=== PATIENT | male | born 2000 | race Caucasian/White ===

== ENCOUNTER 2019-09-08 21:58 | Inpatient (IN) | payer BC ==
[~2019-09-08] VITALS: Ht 180.3 cm; Wt 95.0 kg
[2019-09-08] MEDS ORDERED: normal saline 1000ML IV soln IVB ONE (22:15)
[2019-09-08] MEDS ORDERED: famotidine/PF 10 mg/ml inj IV ONE (22:15)
[2019-09-08] MEDS ORDERED: ondansetron/PF 4mg/2ml inj IV ONE (22:15)
[2019-09-08 22:19] LABS: BASOPHILS # (AUTO) 0.1 X10'3 (0-0.2); BASOPHILS % (AUTO) 0.3 % (0-1); EOSINOPHILS % (AUTO) 0.1 % (0-6); HEMATOCRIT 52.5 % (42.0-52.0); HEMOGLOBIN 17.9 g/dl (14.0-17.9); LYMPHOCYTES # (AUTO) 1.7 X10'3 (1.1-4.8); LYMPHOCYTES % (AUTO) 6.2 % (21-51); MEAN CORPUSCULAR HEMOGLOBIN 28.9 PG (27.0-31.0); MEAN CORPUSCULAR HGB CONC 34.1 g/dL (33.0-36.5); MEAN CORPUSCULAR VOLUME 84.7 FL (78-98); MEAN PLATELET VOLUME 8.3 FL (7.4-10.4); MONOCYTES # (AUTO) 2.3 X10'3 (0-0.9); MONOCYTES % (AUTO) 8.4 % (2-12); NEUTROPHILS # (AUTO) 23.5 X10'3 (1.8-7.7); PLATELET COUNT 392 X10'3 (140-440); RED BLOOD COUNT 6.19 X10'6 (4.70-6.10); RED CELL DISTRIBUTION WIDTH 13.2 % (11.5-14.5)
[2019-09-08 22:22] LABS: WHITE BLOOD COUNT 27.6 X10'3 (4.5-11.0)
--- NOTE | 2019-09-08 22:29 | NUR ---
Attempt to collect urine. Patient states he does not feel like he can void at this time. Will attempt to collect UA after NS bolus completes.
[2019-09-08] MEDS ORDERED: normal saline 1000ML IV soln IV ONE (22:30)
[2019-09-08] MEDS ORDERED: iohexol 300mg/ml 100ml inj. ONE (22:39)
[2019-09-08 22:45] LABS: ALANINE AMINOTRANSFERASE 56 U/L (12-78); ALBUMIN 4.8 G/DL (3.4-5.0); ALBUMIN/GLOBULIN RATIO 1.2 (1.1-1.5); ALKALINE PHOSPHATASE 123 IU/L (46-116); ANION GAP 19 (8-16); ASPARTATE AMINO TRANSFERASE 29 U/L (10-37); BILIRUBIN,TOTAL 0.7 MG/DL (0.1-1.0); BLOOD UREA NITROGEN 14 MG/DL (7-18); BUN/CREATININE RATIO 9.6 (5.4-32.0); CALCIUM 9.8 MG/DL (8.5-10.1); CHLORIDE 102 MMOL/L (99-107); CREATININE 1.46 MG/DL (0.60-1.10); GLUCOSE 165 MG/DL (70-104); LIPASE 170 U/L (73-393); SODIUM 138 MMOL/L (135-145); TOTAL PROTEIN 8.9 G/DL (6.4-8.2); eGFR 61 ML/MIN
[2019-09-08] MEDS ORDERED: potassium Cl 20 mEq SR tablet PO STA (22:55)
[2019-09-08] MEDS ORDERED: proCHLORperazine 10 MG/2 ml inj IV ONE (23:15)
[2019-09-08 23:17] LABS: TOTAL CELLS COUNTED 100
[2019-09-08 23:19] LABS: PLATELET ESTIMATE NORMAL
[2019-09-08] MEDS ORDERED: CefTRIAXone 2gm/D5W 50ml 50 ML IV ONE (23:50)
[2019-09-08 23:52] LABS: CLARITY,URINE SLIGHTLY CLOUDY (Clear); COLOR,URINE YELLOW (Yellow); GLUCOSE, URINE NEGATIVE (Neg); KETONES,URINE 15 mg/dl (Neg); LEUKOCYTE ESTERASE ,URINE NEGATIVE (Neg); NITRITES, URINE NEGATIVE (Neg); OCCULT BLOOD,URINE NEGATIVE (Neg); PROTEIN,URINE NEGATIVE (Neg); UROBILINOGEN,URINE 0.2 E.U/dL (0.2-1.0)
[2019-09-08 23:56] LABS: UA COLLECTION TYPE CLN CATCH MIDSTREAM
[2019-09-08 23:58] LABS: BACTERIA,URINE FEW /HPF (Neg); MUCUS STRANDS MODERATE /LPF (Neg); SQUAMOUS EPITHELIAL CELL,UR NONE SEEN /LPF (FEW); WBC,URINE 0-4 /HPF (0-4)
[2019-09-09 00:02] LABS: AMORPHOUS PHOSPHATES 1+; RBC,URINE NONE SEEN /HPF (0-2)
[2019-09-09 00:05] LABS: URINE AMPHETAMINE SCREEN NEGATIVE (Neg); URINE BARBITUATE SCREEN NEGATIVE (Neg); URINE BENZODIAZEPINES SCREEN NEGATIVE (Neg); URINE CANNABINOID SCREEN NEGATIVE (Neg); URINE COCAINE SCREEN NEGATIVE (Neg); URINE METHADONE SCREEN NEGATIVE (Neg); URINE OPIATE SCREEN NEGATIVE (Neg); URINE PHENCYCLIDINE SCREEN NEGATIVE (Neg)
[2019-09-09] MEDS ORDERED: piperacillin/tazo 3.375gm/50ml 50 ML IV ONE (00:05)
[2019-09-09] MEDS ORDERED: normal saline 1000ML IV soln IVB ONE (00:10)
[2019-09-09] MEDS ORDERED: NO HOME MEDS (00:10)
--- NOTE | 2019-09-09 00:28 | NUR ---
Patient is resting more comfortably. Patient and family updated on POC.
[2019-09-09] MEDS ORDERED: ondansetron/PF 4mg/2ml inj IV PRN (01:30)
[2019-09-09] MEDS ORDERED: morphine 2 MG/ML inj. syringe IV PRN ×2 (01:30)
[2019-09-09] MEDS ORDERED: potassium CL 10mEq/100ml bag 100 ML IV PRN ×2 (01:35→08:45)
[2019-09-09] MEDS: normal saline 1000ml 1,000 ML IV SCH ×3 (02:07→17:45)
[2019-09-09 02:50] VITALS: BP 140/83
[2019-09-09] MEDS ORDERED: proCHLORperazine 10 MG/2 ml inj IV PRN (03:35)
[2019-09-09 05:06] LABS: PARTIAL THROMBOPLASTIN TIME 25 SECONDS (22-32)
[2019-09-09] MEDS ORDERED: normal saline 1000ml 1,000 ML IV ONE (05:10)
[2019-09-09] MEDS: diatr meglu/diatrizoate 30ml oral sol.-(3 dose) bottle PO SCH ×3 (05:32→10:50)
--- NOTE | 2019-09-09 06:23 | NUR ---
Problems reprioritized. Patient report given, questions answered & plan of care reviewed with AVRIL Whyte. Addendum: 09/09/19 at 0624 by Mary Blair RN Amended: Links added.
[2019-09-09 07:20] VITALS: BP 121/59
[2019-09-09] MEDS ORDERED: piperacillin/tazo 3.375gm/50ml 50 ML IV SCH (08:00)
[2019-09-09] MEDS ORDERED: magnesium 4gm in 100ml NS 100 ML IV PRN (08:45)
[2019-09-09] MEDS ORDERED: potassium Cl 20 mEq SR tablet PO PRN ×2 (08:45)
[2019-09-09] MEDS ORDERED: magnesium Cl slow-release 64mg tablet PO PRN (08:45)
[2019-09-09] MEDS ORDERED: iohexol 300mg/ml 100ml inj. ONE (10:32)
[2019-09-09 11:28] VITALS: BP 130/79
--- NOTE | 2019-09-09 14:55 | NUR ---
Read CT IMPRESSION (1. Negative for acute or alarming CT abdomen or pelvis findings. 2. Normal-appearing appendix..) over the phone with Dr. Herring, he stated that he does not need to be consulted. Notified hospitalist.
[2019-09-09] MEDS: levoFLOXACIN-Levaquin 750MG/D5 150 ML IV SCH (15:48)
[2019-09-09 17:37] LABS: C DIFF ANTIGEN NEGATIVE (NEGATIVE); C DIFF SPECIMEN=DIARRHEA? ACCEPTABLE; C DIFFICILE TOXINS A&B NEGATIVE (Neg)
[2019-09-09] MEDS: metroNIDAZOLE-Flagyl 500mg/NS 100 ML IV SCH ×2 (17:42→23:50)
[2019-09-09 18:00] VITALS: BP 128/88
--- NOTE | 2019-09-09 18:20 | NUR ---
Problems reprioritized. Patient report given, questions answered & plan of care reviewed with AVRIL CANALES.
[2019-09-09] MEDS ORDERED: ketorolac trometh. 30mg/ml inj. IV ONE (19:10)
[2019-09-09] MEDS: lactobacillus rhamnosus 10,000 MMU CELLS/CAPSULE PO SCH (19:24)
[2019-09-10] VITALS: BP 115/67
--- NOTE | 2019-09-10 04:32 | NUR ---
Patient in room [facility]. I have received report from AVRIL Whyte and had the opportunity to ask questions and assume patient care. Addendum: 09/10/19 at 0432 by Mary Blair RN Amended: Links added.
[2019-09-10] MEDS: normal saline 1000ml 1,000 ML IV SCH (04:41)
[2019-09-10 04:59] LABS: BASOPHILS % (AUTO) 0.2 % (0-1); EOSINOPHILS # (AUTO) 0.1 X10'3 (0-0.9); EOSINOPHILS % (AUTO) 1.3 % (0-6); HEMATOCRIT 40.6 % (42.0-52.0); HEMOGLOBIN 13.7 g/dl (14.0-17.9); LYMPHOCYTES # (AUTO) 1.6 X10'3 (1.1-4.8); MEAN CORPUSCULAR HEMOGLOBIN 28.9 PG (27.0-31.0); MEAN CORPUSCULAR HGB CONC 33.7 g/dL (33.0-36.5); MEAN CORPUSCULAR VOLUME 85.7 FL (78-98); MEAN PLATELET VOLUME 8.1 FL (7.4-10.4); MONOCYTES % (AUTO) 15.6 % (2-12); NEUTROPHILS # (AUTO) 3.6 X10'3 (1.8-7.7); NEUTROPHILS % (AUTO) 56.9 % (42-75); PLATELET COUNT 200 X10'3 (140-440); RED BLOOD COUNT 4.75 X10'6 (4.70-6.10); WHITE BLOOD COUNT 6.3 X10'3 (4.5-11.0)
[2019-09-10 05:27] LABS: ALANINE AMINOTRANSFERASE 34 U/L (12-78); ALBUMIN 2.9 G/DL (3.4-5.0); ALKALINE PHOSPHATASE 74 IU/L (46-116); ANION GAP 7 (8-16); ASPARTATE AMINO TRANSFERASE 19 U/L (10-37); BILIRUBIN,TOTAL 0.4 MG/DL (0.1-1.0); BLOOD UREA NITROGEN 6 MG/DL (7-18); BUN/CREATININE RATIO 6.1 (5.4-32.0); CALCIUM 7.6 MG/DL (8.5-10.1); CHLORIDE 110 MMOL/L (99-107); CREATININE 0.99 MG/DL (0.60-1.10); GLUCOSE 97 MG/DL (70-104); MAGNESIUM 1.7 MG/DL (1.5-2.4); PHOSPHORUS 2.5 MG/DL (2.3-4.5); POTASSIUM 3.3 MMOL/L (3.5-5.1); SODIUM 140 MMOL/L (135-145); TOTAL CARBON DIOXIDE 23.1 MMOL/L (24-32); TOTAL PROTEIN 5.8 G/DL (6.4-8.2); eGFR > 90 ML/MIN
--- NOTE | 2019-09-10 06:15 | NUR ---
Problems reprioritized. Patient report given, questions answered & plan of care reviewed with AVRIL Whyte. Addendum: 09/10/19 at 0615 by Mary Blair RN Amended: Links added.
[2019-09-10] MEDS: metroNIDAZOLE-Flagyl 500mg/NS 100 ML IV SCH (07:31)
[2019-09-10] MEDS: lactobacillus rhamnosus 10,000 MMU CELLS/CAPSULE PO SCH (07:31)
[2019-09-10 08:00] VITALS: BP 123/67
[2019-09-10] MEDS: levoFLOXACIN-Levaquin 750MG/D5 150 ML IV SCH (08:52)
[2019-09-10] MEDS ORDERED: LEVO750T46 PO (09:18)
[2019-09-10] MEDS ORDERED: METR500T PO (09:18)
[2019-09-10] MEDS ORDERED: LACT1CAP26 PO (09:18)
--- NOTE | 2019-09-10 09:51 | NUR ---
Page to hospitalist: Emory Bravo 348A : K 3.3 one dose of 20mEq given already is that sufficient or would you like another dose before I DC him? [phone] [id number]
--- NOTE | 2019-09-10 11:00 | NUR ---
Student documentation: I have reviewed and agree with all interventions, assessments performed and documented by SN Terry.
--- NOTE | 2019-09-10 11:07 | NUR ---
Patient discharged home stable and appropriate after receiving flagyl and levaquin IV. IV removed. All belongings taken from room. New prescriptions sent to preferred pharmacy. Discharge instructions given and reviewed with patient.
[2019-09-10 13:19] LABS: TOTAL CELLS COUNTED 100
[2019-09-10 13:20] LABS: PLATELET ESTIMATE NORMAL
== END 2019-09-10 11:00 | disposition home or self-care (01) | DRG 872 ==
LOC: ER 21:59 → ED HOLD 09-09 01:30 → CMPBEDREQ 09-09 02:51 → SUR 3N 09-09 02:51
PROVIDERS: ADMIT Internal Medicine; ATTEND Family Medicine
PROC: BW211ZZ Computerized Tomography (CT Scan) of Abdomen and Pelvis using Low Osmolar Contrast (ICD-10-PCS; principal; 2019-09-08)
DX: A41.9 Sepsis, unspecified organism (principal); A04.9 Bacterial intestinal infection, unspecified; E87.2 Acidosis; K35.80 Unspecified acute appendicitis; E86.0 Dehydration; Z79.899 Other long term (current) drug therapy
CPT/HCPCS: 36415; 71045; 74177; 80053; 80305; 81001; 83605; 83690; 83735; 84100; 84132; 84145; 85025; 85610; 85730; 87040; 87045; 87046; 87081; 87324; 87449; 89055; G0378; J0780; J1885; J1956; J2270; J2405; J2543; J3490; J7030; Q9963; Q9967

== ENCOUNTER 2022-08-15 13:28 | Emergency (ER) | payer BC, OTHER ==
[~2022-08-15] VITALS: Ht 177.8 cm; Wt 84.1 kg
[~2022-08-15 13:28] MED LIST: LACT1CAP26 PO
[2022-08-15 14:07] VITALS: BP 121/82
[2022-08-15] MEDS ORDERED: HYDROcodone/acetaminophen 5mg/325mg tablet PO ONE (16:20)
[2022-08-15] MEDS ORDERED: ondansetron 4mg rapidly disintigrating tab PO ONE (16:20)
[2022-08-15] MEDS ORDERED: HYDR-3965 PO (16:34)
== END 2022-08-15 17:12 | disposition home or self-care (01) ==
LOC: ER 13:28
DX: S89.82XA Other specified injuries of left lower leg, initial encounter (principal); M79.661 Pain in right lower leg; Z79.899 Other long term (current) drug therapy; X58.XXXA Exposure to other specified factors, initial encounter; Y93.89 Activity, other specified; Y92.89 Other specified places as the place of occurrence of the external cause; Y99.8 Other external cause status
CPT/HCPCS: 73590; 99283